=== PATIENT | male | born 1935 | race Caucasian/White ===

== ENCOUNTER 2021-10-22 15:54 | Emergency (ER) | payer SELFPAY ==
[~2021-10-22] VITALS: Ht 170.2 cm; Wt 68.0 kg
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
[2021-10-22] MEDS ORDERED: HYDROCODONE/APAP 5/325MG TABLET ONE (18:24)
[2021-10-22] MEDS ORDERED: HYDROCODONE/APAP 5/325MG TABLET PO ONE (18:30)
[2021-10-22] MEDS ORDERED: HYDR-4303 PO (18:39)
--- NOTE | 2021-10-22 19:08 | NUR ---
Patient discharged to home in stable condition. Written and verbal after care instructions given. Patient verbalizes understanding of instruction.
[2021-10-22 19:11] VITALS: BP 121/60
== END 2021-10-22 19:14 | disposition home or self-care (01) ==
LOC: ER 15:58
DX: S13.4XXA Sprain of ligaments of cervical spine, initial encounter (principal); Z60.2 Problems related to living alone; V49.49XA Driver injured in collision with other motor vehicles in traffic accident, initial encounter; Y93.89 Activity, other specified; Y92.413 State road as the place of occurrence of the external cause; Y99.8 Other external cause status
CPT/HCPCS: 72125-TC